=== PATIENT | male | born 1960 | race Caucasian/White ===

== ENCOUNTER 2019-05-04 13:33 | Emergency (ER) | payer BC, OTHER ==
--- OUTSIDE RECORDS SUMMARY | 2019-05-04 13:35 | XMS REPORT ---
:1960 Author Organization e[employer] Care Team Providers Name Role Phone Lalit Tamez Provider Role Unavailable Allergies, Adverse Reactions, Alerts Substance Reaction Event Type N.K.D.A. Info Not Available Non Drug Allergy Problems Problem Type Condition Code Onset Dates Condition Status Assessment Arthritis of knee, right M17.11 Active Problem Acute pain of left knee M25.562 Active Problem Arthritis of knee, left M17.12 Active Problem Primary osteoarthritis of left knee M17.12 Active Assessment Acute pain of left knee M25.562 Active Assessment Arthritis of knee, left M17.12 Active Problem Arthritis of knee, right M17.11 Active Medications Medication Code Code Instructions Start End Status Dosage System Date Date Verapamil HCl [facility] 86775962982 240 MG Oral Active not ER defined Metoprolol [facility] 03949143249 25 MG Oral Active not Tartrate defined Lisinopril [facility] 18679931147 40 MG Oral Active not defined Aspirin [facility] 78155818559 81 MG Orally Active 1 tablet Once a day Hydrocodone-Ac [facility] 08351220116 10-325 MG Oral Active (Schedule etaminophen II Drug) Gabapentin [facility] 51304506397 300 MG Orally Active 1 capsule Once a day Results No Known Results Summary Purpose eClinicalWorks Submission
[2019-05-04] MEDS ORDERED: NA CHLORIDE 0.9% 1,000 ML ONE (13:47)
[2019-05-04 13:59] LABS: Absolute Lymphocytes (CBC) 2.1 K/uL (0.7-4.9); Basophils % 0.6 % (0-1.3); Hematocrit 33.5 % (39.6-49.0); Lymphocytes % 18.4 % (15.3-44.8); MPV 7.6 fL (7.6-11.3); RBC Red Blood Cell Count 3.57 M/uL (4.33-5.43)
[2019-05-04 14:04] LABS: Protime INR 1.08
--- NOTE | 2019-05-04 14:04 | RAD REPORT ---
EXAM DESCRIPTION: RAD - Chest Single View - 05/04/2019 1:56 pm CLINICAL HISTORY: COUGH Chest pain. COMPARISON: <Comparisons> FINDINGS: Portable technique limits examination quality. The lungs are grossly clear. The heart is normal in size. No displaced fractures. IMPRESSION: No acute intrathoracic process suspected.
[2019-05-04 14:18] LABS: ALT/SGPT 21 U/L (12-78); AST/SGOT 16 U/L (15-37); Albumin 3.6 g/dL (3.4-5.0); Alkaline Phosphatase 46 U/L (45-117); BUN Blood Urea Nitrogen 22 mg/dL (7-18); Bicarbonate 29 mmol/L (21-32); Bilirubin Direct < 0.1 mg/dL (0-0.2); Bilirubin Total 0.2 mg/dL (0.2-1.0); Glucose Level 120 mg/dL (74-106); Lipase 73 U/L (73-393); Magnesium 2.1 mg/dL (1.8-2.4); NT PRO-BNP 133 pg/mL (<125); Potassium 3.7 mmol/L (3.5-5.1); Protein, Total 6.8 g/dL (6.4-8.2); Sodium Level 141 mmol/L (136-145); Troponin (Emerg Dept Use Only) < 0.02 ng/mL (0.0-0.045)
--- NOTE | 2019-05-04 15:34 | EDPHYS ---
Physician Documentation [facility] Name: Greyson Davis Age: 58 yrs Sex: Male : 1960 Arrival Date: 05/04/2019 Time: 13:40 Bed 4 Private MD: ED Physician Jah Daniel HPI: 05/04 14:12 This 58 yrs old Male presents to ER via EMS with complaints of Hypotension, dominique Dizziness. 14:12 The patient presents with dizziness, feeling faint, generalized weakness, dominique lightheadedness. Onset: The symptoms/episode began/occurred just prior to arrival. Context: occurred at home, occurred while the patient was at rest. Modifying factors: The symptoms are alleviated by nothing, the symptoms are aggravated by nothing. Associated signs and symptoms: The patient has no apparent associated signs or symptoms. Severity of symptoms: At their worst the symptoms were mild moderate in the emergency department the symptoms have resolved and did so just prior to arrival. Patient's baseline: Neuro:. The patient has not experienced similar symptoms in the past. Historical: - Allergies: 13:43 No Known Allergies; sv - Home Meds: 13:43 lisinopril 40 mg Oral tab 1 tab once daily [Active]; Norvasc 5 mg Oral tab 1 tab once sv daily [Active]; metoprolol tartrate 25 mg Oral tab 1 tab 2 times per day [Active]; hydrochlorothiazide 25 mg Oral tab 1 tab once daily [Active]; - PMHx: 13:43 Hypertension; sv - PSHx: 13:43 None; sv - Ebola Screening: : No symptoms or risks identified at this time. - Family history:: not pertinent. ROS: 14:12 Constitutional: Negative for fever, chills, and weight loss, Eyes: Negative for injury, dominique pain, redness, and discharge, ENT: Negative for injury, pain, and discharge, Neck: Negative for injury, pain, and swelling, Cardiovascular: Negative for chest pain, palpitations, and edema, Respiratory: Negative for shortness of breath, cough, wheezing, and pleuritic chest pain, Abdomen/GI: Negative for abdominal pain, nausea, vomiting, diarrhea, and constipation, Back: Negative for injury and pain, : Negative for injury, bleeding, discharge, and swelling, MS/Extremity: Negative for injury and deformity, Skin: Negative for injury, rash, and discoloration, Psych: Negative for depression, anxiety, suicide ideation, homicidal ideation, and hallucinations, Allergy/Immunology: Negative for hives, rash, and allergies, Endocrine: Negative for neck swelling, polydipsia, polyuria, polyphagia, and marked weight changes, Hematologic/Lymphatic: Negative for swollen nodes, abnormal bleeding, and unusual bruising. 14:12 Neuro: Positive for dizziness, weakness. Exam: 14:14 Constitutional: This is a well developed, well nourished patient who is awake, alert, dominique and in no acute distress. Head/Face: Normocephalic, atraumatic. Eyes: Pupils equal round and reactive to light, extra-ocular motions intact. Lids and lashes normal. Conjunctiva and sclera are non-icteric and not injected. Cornea within normal limits. Periorbital areas with no swelling, redness, or edema. ENT: Nares patent. No nasal discharge, no septal abnormalities noted. Tympanic membranes are normal and external auditory canals are clear. Oropharynx with no redness, swelling, or masses, exudates, or evidence of obstruction, uvula midline. Mucous membranes moist. Neck: Trachea midline, no thyromegaly or masses palpated, and no cervical lymphadenopathy. Supple, full range of motion without nuchal rigidity, or vertebral point tenderness. No Meningismus. Chest/axilla: Normal chest wall appearance and motion. Nontender with no deformity. No lesions are appreciated. Cardiovascular: Regular rate and rhythm with a normal S1 and S2. No gallops, murmurs, or rubs. Normal PMI, no JVD. No pulse deficits. Respiratory: Lungs have equal breath sounds bilaterally, clear to auscultation and percussion. No rales, rhonchi or wheezes noted. No increased work of breathing, no retractions or nasal flaring. Abdomen/GI: Soft, non-tender, with normal bowel sounds. No distension or tympany. No guarding or rebound. No evidence of tenderness throughout. Back: No spinal tenderness. No costovertebral tenderness. Full range of motion. Male : Normal genitalia with no discharge or lesions. Skin: Warm, dry with normal turgor. Normal color with no rashes, no lesions, and no evidence of cellulitis. MS/ Extremity: Pulses equal, no cyanosis. Neurovascular intact. Full, normal range of motion. Neuro: Awake and alert, GCS 15, oriented to person, place, time, and situation. Cranial nerves II-XII grossly intact. Motor strength 5/5 in all extremities. Sensory grossly intact. Cerebellar exam normal. Normal gait. Psych: Awake, alert, with orientation to person, place and time. Behavior, mood, and affect are within normal limits. 14:14 Musculoskeletal/extremity: DVT Exam: No signs of deep vein thrombosis. no pain, no swelling, no tenderness, negative Homans' sign noted on exam, no appreciated bluish discoloration, no erythema, no increased warmth. 15:34 Cardiovascular: Heart sounds: normal, normal S1and S2, no S3 or S4, no murmur, no rub, dominique no gallop, Edema: is not appreciated, JVD: is not appreciated. Vital Signs: 13:43 BP 117 / 76; Pulse 60; Resp 16; Temp 97.8; Pulse Ox 100% ; Weight 70.31 kg; Height 5 sv ft. 6 in. (167.64 cm); Pain 0/10; 14:00 BP 127 / 69; Pulse 52; Resp 15; Pulse Ox 100% ; sv 14:50 BP 136 / 75; Pulse 59; Resp 17; Pulse Ox 100% ; sv 15:00 BP 147 / 70; Pulse 53; Resp 16; Pulse Ox 100% ; sv 15:41 BP 155 / 87 RA Supine (auto/reg); Pulse 55; sv 15:43 BP 171 / 87 RA Sitting (auto/reg); Pulse 59; sv 15:45 BP 168 / 88 RA Standing (auto/reg); Pulse 63; sv 13:43 Body Mass Index 25.02 (70.31 kg, 167.64 cm) sv MDM: 13:41 Patient medically screened. [facility] 14:16 Data reviewed: vital signs, nurses notes, lab test result(s), EKG, radiologic studies, dominique plain films. 05/04 13:44 Order name: Basic Metabolic Panel; Complete Time: 15:31 [facility] 05/04 13:44 Order name: CBC with Diff; Complete Time: 15:31 [facility] 05/04 13:44 Order name: LFT's; Complete Time: 15:31 [facility] 05/04 13:44 Order name: Magnesium; Complete Time: 15:31 [facility] 05/04 13:44 Order name: NT PRO-BNP; Complete Time: 15:31 [facility] 05/04 13:44 Order name: PT-INR; Complete Time: 15:31 [facility] 05/04 13:44 Order name: Troponin (emerg Dept Use Only); Complete Time: 15:31 05/04 13:44 Order name: XRAY Chest (1 view); Complete Time: 15:31 [facility] 05/04 13:44 Order name: EKG; Complete Time: 13:45 05/04 13:44 Order name: Procalcitonin; Complete Time: 15:31 [facility] 05/04 13:44 Order name: Lipase; Complete Time: 15:31 [facility] 05/04 13:44 Order name: Cardiac monitoring; Complete Time: 13:45 [facility] 05/04 13:44 Order name: EKG - Nurse/Tech; Complete Time: 13:56 [facility] 05/04 13:44 Order name: IV Saline Lock; Complete Time: 13:45 [facility] 05/04 13:44 Order name: Labs collected and sent; Complete Time: 13:56 [facility] 05/04 13:44 Order name: O2 Per Protocol; Complete Time: 13:45 05/04 13:44 Order name: O2 Sat Monitoring; Complete Time: 13:45 [facility] 05/04 15:31 Order name: Orthostatics; Complete Time: 15:54 [facility] Administered Medications: 13:56 Drug: NS 0.9% 1000 ml Route: IV; Rate: 1 bolus; Site: left antecubital; sv 15:39 Follow up: Response: No adverse reaction; IV Status: Completed infusion; IV Intake: sv 1000ml Disposition: 05/04/19 15:34 Discharged to Home. Impression: Weakness, Hypotension, Volume depletion. - Condition is Stable. - Discharge Instructions: Dehydration, Adult, Hypertension, Weakness, Fatigue, Hypertension, Ffbl-[id number], Weakness, Vcby-wb-Tywl, Dehydration, Adult, Jyri-ps-Onws. - Medication Reconciliation Form, Thank You Letter, Antibiotic Education, Prescription Opioid Use form. - Follow up: Private Physician; When: 2 - 3 days; Reason: Recheck today's complaints, Continuance of care, Re-evaluation by your physician. Follow up: Wilber Eugene MD; When: 2 - 3 days; Reason: Recheck today's complaints, Re-evaluation by your physician. - Problem is new. - Symptoms have improved. Signatures: Dispatcher [employer] Caren Ford RN RN sv Anderson, Corey, MD MD cha Corrections: (The following items were deleted from the chart) 15:37 15:34 05/04/2019 15:34 Discharged to Home. Impression: Weakness; Hypotension. Condition dominique is Stable. Forms are Medication Reconciliation Form, Thank You Letter, Antibiotic Education, Prescription Opioid Use. Follow up: Private Physician; When: 2 - 3 days; Reason: Recheck today's complaints, Continuance of care, Re-evaluation by your physician. Follow up: Wilber Eugene; When: 2 - 3 days; Reason: Recheck today's complaints, Re-evaluation by your physician. Problem is new. Symptoms have improved. [facility] 15:57 15:37 05/04/2019 15:34 Discharged to Home. Impression: Weakness; Hypotension; Volume sv depletion. Condition is Stable. Forms are Medication Reconciliation Form, Thank You Letter, Antibiotic Education, Prescription Opioid Use. Follow up: Private Physician; When: 2 - 3 days; Reason: Recheck today's complaints, Continuance of care, Re-evaluation by your physician. Follow up: Wilberjuan Jaureguii; When: 2 - 3 days; Reason: Recheck today's complaints, Re-evaluation by your physician. Problem is new. Symptoms have improved. dominique
--- NOTE | 2019-05-04 15:34 | ER ---
Nurse's Notes [facility] Name: Greyson Davis Age: 58 yrs Sex: Male : 1960 Arrival Date: 05/04/2019 Time: 13:40 Bed 4 Private MD: Diagnosis: Weakness;Hypotension;Volume depletion Presentation: 05/04 13:32 Presenting complaint: EMS states: pt stated he was sitting on the couch and all of a sv sudden felt generalized weakness and dizziness, he checked his BP and it was 70/40 HR-40s. On EMS arrival pt was cool and diaphoretic BP 117/62 HR-50s SB BS-121. Transition of care: patient was not received from another setting of care. Onset of symptoms was May 04, 2019. Risk Assessment: Do you want to hurt yourself or someone else? Patient reports no desire to harm self or others. Care prior to arrival: IV initiated. 18 GA, in the left antecubital area, Glucose check: 121 Oxygen administered. via nasal cannula. 13:32 Acuity: LASHAE 3 sv 13:32 Method Of Arrival: EMS: [facility] sv 13:45 Initial Sepsis Screen: Does the patient meet any 2 criteria? No. Patient's initial sv sepsis screen is negative. Does the patient have a suspected source of infection? No. Patient's initial sepsis screen is negative. Triage Assessment: 13:32 General: Appears in no apparent distress. comfortable, well developed, Behavior is sv calm, cooperative, appropriate for age. General: Denies feeling ill. General: Reports taking his meds this morning. Family at bedside reports that all he had to eat today was peanut butter and crackers and a Dr Pepper. Pain: Denies pain. Neuro: Level of Consciousness is awake, alert, obeys commands, Oriented to person, place, time, situation, Moves all extremities. Full function Gait is steady, Speech is normal, Facial symmetry appears normal, Denies dizziness. Cardiovascular: Patient's skin is warm and dry. Rhythm is sinus rhythm. Respiratory: Airway is patent Respiratory effort is even, unlabored, Respiratory pattern is regular, symmetrical, Denies cough, shortness of breath labored breathing. Derm: Skin is intact, Skin is dry, Skin is normal, Skin temperature is cool. Musculoskeletal: Range of motion: intact in all extremities. Historical: - Allergies: 13:43 No Known Allergies; sv - Home Meds: 13:43 lisinopril 40 mg Oral tab 1 tab once daily [Active]; Norvasc 5 mg Oral tab 1 tab once sv daily [Active]; metoprolol tartrate 25 mg Oral tab 1 tab 2 times per day [Active]; hydrochlorothiazide 25 mg Oral tab 1 tab once daily [Active]; - PMHx: 13:43 Hypertension; sv - PSHx: 13:43 None; sv - Ebola Screening: : No symptoms or risks identified at this time. - Family history:: not pertinent. Screenin:15 Abuse screen: Denies threats or abuse. Denies injuries from another. Nutritional sv screening: No deficits noted. Tuberculosis screening: No symptoms or risk factors identified. Fall Risk No fall in past 12 months (0 pts). No secondary diagnosis (0 pts). IV access (20 points). Ambulatory Aid- None/Bed Rest/Nurse Assist (0 pts). Gait- Normal/Bed Rest/Wheelchair (0 pts) Mental Status- Oriented to own ability (0 pts). Total Schaffer Fall Scale indicates No Risk (0-24 pts). Assessment: 13:56 Reassessment: Patient appears in no apparent distress at this time. No changes from sv previously documented assessment. Patient and/or family updated on plan of care and expected duration. Pain level reassessed. Patient is alert, oriented x 3, equal unlabored respirations, skin warm/dry/pink. 15:00 Reassessment: Patient appears in no apparent distress at this time. No changes from sv previously documented assessment. Patient and/or family updated on plan of care and expected duration. Pain level reassessed. Patient is alert, oriented x 3, equal unlabored respirations, skin warm/dry/pink. 15:47 Reassessment: Informed Dr Daniel of the orthostatic vitals, ok to discharge. sv 15:56 Reassessment: Patient appears in no apparent distress at this time. Patient and/or sv family updated on plan of care and expected duration. Pain level reassessed. Patient is alert, oriented x 3, equal unlabored respirations, skin warm/dry/pink. Patient states symptoms have improved. Vital Signs: 13:43 BP 117 / 76; Pulse 60; Resp 16; Temp 97.8; Pulse Ox 100% ; Weight 70.31 kg; Height 5 sv ft. 6 in. (167.64 cm); Pain 0/10; 14:00 BP 127 / 69; Pulse 52; Resp 15; Pulse Ox 100% ; sv 14:50 BP 136 / 75; Pulse 59; Resp 17; Pulse Ox 100% ; sv 15:00 BP 147 / 70; Pulse 53; Resp 16; Pulse Ox 100% ; sv 15:41 BP 155 / 87 RA Supine (auto/reg); Pulse 55; sv 15:43 BP 171 / 87 RA Sitting (auto/reg); Pulse 59; sv 15:45 BP 168 / 88 RA Standing (auto/reg); Pulse 63; sv 13:43 Body Mass Index 25.02 (70.31 kg, 167.64 cm) sv ED Course: 13:32 Maintain EMS IV. Dressing intact. Good blood return noted. Site clean \T\ dry. Gauge \T\ sv site: 18G L AC. 13:35 Placed in gown. Bed in low position. library monitor on. Pulse ox on. NIBP on. Door sv closed. Head of bed elevated. 13:40 Patient arrived in ED. sv 13:40 Caren Alvarado, DAKOTAH is Primary Nurse. sv 13:41 Jah Daniel MD is Attending Physician. dominique 13:42 Triage completed. sv 13:43 Arm band placed on. sv 13:45 Initial lab(s) drawn, by ED staff, sent to lab. sv 13:48 X-ray(s) taken. sv 13:50 EKG done, by ED staff, reviewed by Jah Daniel MD. [email or web address] 13:56 XRAY Chest (1 view) In Process Unspecified. EDMS 13:56 Patient has correct armband on for positive identification. sv 15:18 Awaiting re-evaluation by ER provider. sv 15:33 Wilber Eugene MD is Referral Physician. dominique 15:56 No provider procedures requiring assistance completed. IV discontinued, intact, sv bleeding controlled, No redness/swelling at site. Pressure dressing applied. Administered Medications: 13:56 Drug: NS 0.9% 1000 ml Route: IV; Rate: 1 bolus; Site: left antecubital; sv 15:39 Follow up: Response: No adverse reaction; IV Status: Completed infusion; IV Intake: sv 1000ml Intake: 15:39 IV: 1000ml; Total: 1000ml. sv Outcome: 15:34 Discharge ordered by . dominique 15:56 Discharged to home ambulatory, with family. sv 15:56 Condition: stable 15:56 Condition: improved 15:56 Discharge instructions given to patient, family, Instructed on discharge instructions, follow up and referral plans. Informed pt that Dr Daniel wants him to stop taking HCTZ. He needs to take his Norvasc in the morning and take his Lisinopril at night. Pt and spouse understood new medication instructions. Demonstrated understanding of instructions, follow-up care. 15:57 Patient left the ED. sv Signatures: Dispatcher [employer] EDMS Ambrosio Gordon [email or web address] Caren Alvarado RN RN sv Jah Daniel MD MD cha Corrections: (The following items were deleted from the chart) 13:44 12:32 Presenting complaint: EMS states: pt stated he was sitting on the couch and all sv of a sudden felt generalized weakness and dizziness, he checked his BP and it was 70/40 HR-40s. On EMS arrival pt was cool and diaphoretic BP 117/62 HR-50s SB BS-121 sv 13:44 12:32 Transition of care: patient was not received from another setting of care. sv sv 13:44 12:32 Onset of symptoms was May 04, 2019 sv sv 13:44 12:32 Risk Assessment: Do you want to hurt yourself or someone else? Patient reports no sv desire to harm self or others. sv 13:44 12:32 Care prior to arrival: IV initiated. 18 GA, in the left antecubital area, Glucose sv check: 121 Oxygen administered. via nasal cannula, sv :44 12:32 Method Of Arrival: EMS: [facility] sv sv 13:44 12:32 Acuity: LASHAE 3 sv sv 14:52 13:55 EKG done, by ED staff, reviewed by Jah Daniel MD sv [email or web address]
[2019-05-04 16:59] VITALS: TEMP 97.8; O2SAT 100
[2019-05-04 17:05] VITALS: BP 168/88
--- NOTE | 2019-05-05 10:05 | EKG ---
Test Date: 2019-05-04 Test Time: 13:52:31 Template Storage Clerk: JASVIR MEASUREMENT RESULTS: Intervals: Rate: 54 FL: 144 QRSD: 90 QT: 444 QTc: 421 [place]: P: 57 FL: 144 QRS: 9 T: 21 INTERPRETIVE STATEMENTS: Sinus bradycardia Otherwise normal ECG No previous ECG available for comparison Electronically Signed On 05-05-19 10:04:44 DIRECTOR OF CLOUD SERVICES by Devaughn Najera
== END 2019-05-04 15:57 | disposition home or self-care (01) ==
LOC: ER 13:33
DX: I95.9 Hypotension, unspecified (principal); E86.9 Volume depletion, unspecified; I10 Essential (primary) hypertension
CPT/HCPCS: 96361; 93005; 85025; 80048; 36415; 83735; 85610; 80076; 84484; 83690; 84145; 83880; 71045; 96360; 99285; J7030